=== PATIENT | female | born 1965 | race Caucasian/White ===

== ENCOUNTER 2017-12-07 08:01 | Day surgery (SDC) | payer BC ==
[2017-12-07] MEDS ORDERED: LIDOCAINE HCL/PF 2% SDV 5ML VIAL ONE (08:05)
[2017-12-07] MEDS ORDERED: PROPOFOL 20 ML ONE ×2 (08:05)
[2017-12-07 08:14] VITALS: BMI 20.7
[2017-12-07 09:24] VITALS: PULSE 73; TEMP 97.5
[2017-12-07 09:42] VITALS: BP 92/65
--- NOTE | 2017-12-08 11:26 | PATH ---
Surgical Pathology Report Patient Name: SARAH LARSEN [facility]. Rec. #: [id number] /Age/Gender: 1965 (Age: 52) / F Account: [id number] Location: [facility]-ENDOSCOPY Taken: 12/07/2017 Received: 12/07/2017 Reported: 12/08/2017 Physicians: Tamra Clifford M.D. Specimen(s) Received BX RECTUM Clinical History Preoperative diagnosis: Colon cancer, change in bowel habits Postoperative diagnosis: Circumferential ulcerated mass Final Diagnosis RECTUM, BIOPSY: INVASIVE ADENOCARCINOMA, LOW GRADE, WITH EXTENSIVE NECROSIS. Comment: This case was discussed with Dr. Arellano on December 08, 2017. [employer]Match [employer] Protein analysis by immunohistochemistry is pending, and a report will follow. Electronically Signed David Martinez M.D. Addendum Reported: 12/11/2017 Addendum Diagnosis He Immunohistochemical stains for MisMatch Repair Protein Analysis performed at [facility] in [place], [place] ([id number]) and interpreted at [facility] show the following: RESULTS: HMLH-1 INTACT NUCLEAR EXPRESSION HMSH-2 INTACT NUCLEAR EXPRESSION HMSH-6 INTACT NUCLEAR EXPRESSION PMS2 INTACT NUCLEAR EXPRESSION INTERPRETATION: No loss of nuclear expression of MMR proteins: low probability of microsatellite instability-high (MSI-H) Ana Salcedo M.D. Gross Description Received in formalin, labeled "rectum" are 4 mancia, irregular portions of soft tissue ranging from 0.3-0.5 cm. in greatest dimension. The specimens are submitted in toto in one cassette. /12/07/201712/07/2017
== END 2017-12-07 10:05 | disposition home or self-care (01) ==
LOC: FASU-ENDO 08:01
PROVIDERS: ATTEND Internal Medicine Gastroenterology
PROC: 0DBP8ZX Excision of Rectum, Via Natural or Artificial Opening Endoscopic, Diagnostic (ICD-10-PCS; principal; 2017-12-07 08:39)
DX: C20 Malignant neoplasm of rectum (principal); K59.00 Constipation, unspecified
CPT/HCPCS: 88305-TC

== ENCOUNTER → 2021-09-16 | Day surgery (SDC) | payer OTHER | END | disposition home or self-care (01) | LOC: FRADUS-SUR 12:45 | PROVIDERS: ATTEND Internal Medicine Geriatric Medicine | PROC: 0HBT3ZX Excision of Right Breast, Percutaneous Approach, Diagnostic (ICD-10-PCS; principal; 2021-09-16) | DX: N60.31 Fibrosclerosis of right breast (principal); N60.81 Other benign mammary dysplasias of right breast; N64.89 Other specified disorders of breast; N64.1 Fat necrosis of breast; N63.20 Unspecified lump in the left breast, unspecified quadrant | CPT/HCPCS: 19085; 77065-TC; 88305-TC; A4648; A9579; C1887 ==